=== PATIENT | female | born 1995 | race Caucasian/White ===

== ENCOUNTER 2016-06-21 13:19 | Emergency (ER) | payer MEDICAID, OTHER ==
[2016-06-21 14:05] LABS: % BASOPHILS 0.8 % (0.0-2.0); % EOSINOPHILS 9.6 % (0.0-5.0); % LYMPHOCYTES 29.9 % (20.0-50.0); % MONOCYTES 5.8 % (2.0-10.0); % NEUTROPHILS 53.9 % (40.0-80.0); HEMATOCRIT 31.7 % (35.0-45.0); HEMOGLOBIN 10.2 gm/dL (11.7-15.5); MEAN CORPUSCULAR HEMOGLOBIN 21.8 pg (27.0-31.0); MEAN CORPUSCULAR HGB CONC 32.1 pg (28.0-36.0); MEAN PLATELET VOLUME 9.8 fl; NEUTROPHILE ABSOLUTE 2.5 Th/cmm (1.8-8.0); RED BLOOD COUNT 4.66 Mil/cmm (3.80-5.10); RED CELL DISTRIBUTION WIDTH 18.3 % (11.5-20.0); WHITE BLOOD COUNT 4.6 Th/cmm (4.8-10.8)
[2016-06-21 14:11] LABS: INR 0.98 (0.5-1.4); PROTHROMBIN TIME (TEST) 10.2 SECONDS (9.5-11.5)
[2016-06-21 14:14] LABS: PLATELET COUNT 338 Th/cmm (150-400)
[2016-06-21 14:16] LABS: ALB/GLOB RATIO 1.4 (1.0-1.8); ALKALINE PHOSPHATASE 94 U/L (34-104); ANION GAP 6.9 (7.0-16.0); BILIRUBIN,TOTAL 0.3 mg/dL (0.3-1.0); BUN - UREA NITROGEN 8 mg/dL (7-25); BUN/CREATININE RATIO 13.3; CALCIUM SERUM 9.3 mg/dL (8.6-10.3); CARBON DIOXIDE 25.7 mEq/L (21.0-31.0); CHLORIDE 108 mEq/L (98-107); CREATININE - SERUM 0.6 mg/dL (0.6-1.2); GLUCOSE 113 mg/dL (70-105); POTASSIUM SERUM 3.6 mEq/L (3.5-5.1); SGOT 12 U/L (13-39); SGPT/ALT 13 U/L (7-52); SODIUM SERUM 137 mEq/L (136-145)
[2016-06-21 14:17] LABS: CHOLESTEROL 228 mg/dL (<200); TRIGLYCERIDES 83 mg/dL (<150)
[2016-06-21 14:24] LABS: URINE BILIRUBIN NEGATIVE (NEGATIVE); URINE BLOOD MODERATE (NEGATIVE); URINE COLOR YELLOW; URINE GLUCOSE (UA) NEGATIVE (NEGATIVE); URINE KETONE NEGATIVE (NEGATIVE); URINE PH 6.5; URINE PROTEIN NEGATIVE (NEGATIVE); URINE UROBILINOGEN 0.2 E.U./dL (0.2 - 1.0)
[2016-06-21 14:25] LABS: URINE BACTERIA NONE SEEN /hpf (NONE SEEN); URINE EPITHELIAL CELLS MANY /lpf (FEW); URINE WBC NONE SEEN /hpf (0-5)
[2016-06-21] MEDS ORDERED: Sodium Chloride 0.9% 1,000 ML IV ONE (14:59)
--- NOTE | 2016-06-21 15:12 | ED Physician Chart ---
Chief Complaint/HPI - Patient Information Date Seen:: 06/21/16 Time Seen:: 13:48 Chief Complaint:: SEIZURES History of Present Illness:: THIS IS A 20 YO FEMALE WHO IS CONCERNED ABOUT HAVING SEIZURES MORE FREQUENT SINCE SHE GAVE TO A BABY ABOUT ONE MONTH AGO. SHE HAD SEIZURES BEFORE HER DELIVERY BUT NOT FREQUENT. SHE ALSO STATES THAT SHE HAS BEEN HAVING MORE HEADACHES. SHE DENIES NAUSEA AND VOMITING. SHE DENIES CHEST PAIN AND ABDOMINAL PAIN. Allergies:: Allergies Allergy/AdvReac Type Severity Reaction Status Date / Time ethosuximide [From Zarontin] Allergy Verified 01/29/16 21:41 vancomycin Allergy Verified 01/29/16 21:41 Vitals:: Vital Signs - 8 hr 06/21/16 13:36 Temp 97.4 F HR 85 RR 18 BP 124/83 O2 Sat % 99 Historian:: Patient Review:: Nurse's Note Reviewed Review of Systems - Review of Systems General/Constitutional: No fever, No chills, No weight loss, No weakness, No diaphoresis, No edema, No loss of appetite Skin: No skin lesions, No rash, No bruising Head: No headache, No light-headedness Eyes: No loss of vision, No pain, No diplopia ENT: No earache, No nasal drainage, No sore throat, No tinnitus Neck: No neck pain, No swelling, No thyromegaly, No stiffness, No mass noted Cardio Vascular: No chest pain, No palpitations, No PND, No orthopnea, No edema Pulmonary: No SOB, No cough, No sputum, No wheezing GI: No nausea, No vomiting, No diarrhea, No pain, No melena, No hematochezia, No constipation, No hematemesis G/U: No dysuria, No frequency, No hematuria Musculoskeletal: No bone or joint pain, No back pain, No muscle pain Endocrine: No polyuria, No polydipsia Psychiatric: No prior psych history, No depression, No anxiety, No suicidal ideation Hematopoietic: No bruising, No lymphadenopathy Allergic/Immuno: No urticaria, No angioedema Neurological: No syncope, No focal symptoms, No weakness, No paresthesia, Headache, Seizure, No dizziness, No confusion, No vertigo Past Medical History - Past Medical History Obtainable: Yes Past Medical History: Seizures Family History: None Social History: Non Smoker, No Alcohol, No Drug Use Surgical History: None Psychiatricy History: None Medication: Reviewed Family Medical History - Family Member Mother History Unknown: Yes Physical Exam - Physical Examination General/Constitutional: Awake, Well-developed, well-nourished, Alert, No distress, GCS 15, Non-toxic appearing, Ambulatory Head: Atraumatic Eyes: Lids, conjuctiva normal, PERRL, EOMI Skin: Nl inspection, No rash, No skin lesions, No ecchymosis, Well hydrated, No lymphadenopathy ENMT: External ears, nose nl, Nasal exam nl, Lips, teeth, gums nl Neck: Nontender, Full ROM w/o pain, No JVD, No nuchal rigidity, No bruit, No mass, No stridor Respiratory: Nl effort/Exclusion, Clear to Auscultation, No Wheeze/Rhonchi/Rales Cardio Vascular: RRR, No murmur, gallop, rubs, NL S1 S2 GI: No tenderness/rebounding/guarding, No organomegaly, No hernia, Normal BS's, Nondistended, No mass/bruits, No McBurney tenderness : No CVA tenderness Extremities: No tenderness or effusion, Full ROM, normal strength in all extremities, No edema, Normal digits & nails Neuro/Psych: Alert/oriented, DTR's symmetric, Normal sensory exam, Normal motor strength, Judgement/insight normal, Mood normal, Normal gait, No focal deficits Misc: normal gait, Normal back, No paraspinal tenderness Labs/Radiology/EKG Results - Lab Results Results: Laboratory Tests 06/21/16 06/21/16 06/21/16 13:50 13:50 13:50 WBC 4.6 L RBC 4.66 Hgb 10.2 L Hct 31.7 L MCH 21.8 L MCHC Differential 32.1 RDW 18.3 Plt Count 338 D MPV 9.8 Neutrophils % 53.9 Lymphocytes % 29.9 Monocytes % 5.8 Eosinophils % 9.6 H Basophils % 0.8 PT 10.2 INR 0.98 PTT (Actin FS) 24.9 L Sodium Potassium Chloride Carbon Dioxide Anion Gap BUN Creatinine Est GFR ( Amer) Est GFR (Non-Af Amer) BUN/Creatinine Ratio Glucose Calcium Total Bilirubin AST ALT Alkaline Phosphatase Troponin I Total Protein Albumin Globulin Albumin/Globulin Ratio Triglycerides 83 Cholesterol 228 H LDL Cholesterol Direct 161 HDL Cholesterol 48 TSH Urine Source Urine Color Urine Clarity Urine pH Ur Specific [place] Urine Protein Urine Glucose (UA) Urine Ketones Urine Blood Urine Nitrate Urine Bilirubin Urine Urobilinogen Ur Leukocyte Esterase Urine RBC Urine WBC Ur Epithelial Cells Urine Bacteria Urine Test 06/21/16 06/21/16 06/21/16 13:50 13:50 13:50 WBC RBC Hgb Hct MCH MCHC Differential RDW Plt Count MPV Neutrophils % Lymphocytes % Monocytes % Eosinophils % Basophils % PT INR PTT (Actin FS) Sodium 137 Potassium 3.6 Chloride 108 H Carbon Dioxide 25.7 Anion Gap 6.9 L BUN 8 Creatinine 0.6 Est GFR ( Amer) > 60.0 Est GFR (Non-Af Amer) > 60.0 BUN/Creatinine Ratio 13.3 Glucose 113 H Calcium 9.3 Total Bilirubin 0.3 AST 12 L ALT 13 Alkaline Phosphatase 94 Troponin I < 0.01 L Total Protein 6.4 Albumin 3.7 Globulin 2.7 Albumin/Globulin Ratio 1.4 Triglycerides Cholesterol LDL Cholesterol Direct HDL Cholesterol TSH 0.91 Urine Source Urine Color Urine Clarity Urine pH Ur Specific [place] Urine Protein Urine Glucose (UA) Urine Ketones Urine Blood Urine Nitrate Urine Bilirubin Urine Urobilinogen Ur Leukocyte Esterase Urine RBC Urine WBC Ur Epithelial Cells Urine Bacteria Urine Test 06/21/16 06/21/16 14:02 14:02 WBC RBC Hgb Hct MCH MCHC Differential RDW Plt Count MPV Neutrophils % Lymphocytes % Monocytes % Eosinophils % Basophils % PT INR PTT (Actin FS) Sodium Potassium Chloride Carbon Dioxide Anion Gap BUN Creatinine Est GFR ( Amer) Est GFR (Non-Af Amer) BUN/Creatinine Ratio Glucose Calcium Total Bilirubin AST ALT Alkaline Phosphatase Troponin I Total Protein Albumin Globulin Albumin/Globulin Ratio Triglycerides Cholesterol LDL Cholesterol Direct HDL Cholesterol TSH Urine Source CLEAN C Urine Color YELLOW Urine Clarity HAZY Urine pH 6.5 Ur Specific [place] 1.015 Urine Protein NEGATIVE Urine Glucose (UA) NEGATIVE Urine Ketones NEGATIVE Urine Blood MODERATE H Urine Nitrate NEGATIVE Urine Bilirubin NEGATIVE Urine Urobilinogen 0.2 Ur Leukocyte Esterase NEGATIVE Urine RBC 2-5 Urine WBC NONE SEEN Ur Epithelial Cells MANY Urine Bacteria NONE SEEN Urine Test NEGATIVE ED Septic Shock - . Is Septic Shock (SBP<90, OR Lactate>4 mmol\L) present?: No - <6hrs of presentation: Vital Signs: Vital Signs - 8 hr 05/05/17 13:36 Temp 97.4 F HR 85 RR 18 BP 124/83 O2 Sat % 99 Reassessment (Disposition) - Reassessment Reassessment Condition:: Unchanged - Diagnosis Diagnosis:: SEIZURE DISORDER - Aftercare/Follow up Instructions Aftercare/Follow-Up Instructions:: Counseled pt regarding lab results/diagnosis & need follow up, Refer to Discharge Instructions, Counseled pt & family regarding lab results/diagnosis & need follow up - Patient Disposition Discharge/Transfer:: Home Condition at Disposition:: Stable ED Discharge Plan - Patient Disposition Admit/Discharge/Transfer: PT DISCHARGED HOME Condition at Disposition: Unchanged
--- NOTE | 2016-06-21 15:25 | Diagnostic Imaging Report ---
Head CT without intravenous contrast Indication: Seizures Comparison: Previous head CT on 09/21/2014 Technique: Axial images were obtained from the vertex to the skull base without IV contrast. Coronal reconstructions were made. Total DLP: [id number], [id number] FINDINGS: Images of the brain obtained without contrast again demonstrate evidence of right occipital approach shunt catheter terminating along the right occipital extra-axial region as seen on the previous examination. There is no evidence of an acute hemorrhage. Areas of encephalomalacia of the right occipital region are noted. There is stable generalized decreased size of the ventricular system. No mass effect or midline shift. The ventricles and basal cisterns are patent. No evidence of a skull fracture or focal soft tissue swelling. The visualized paranasal sinuses are clear. IMPRESSION: Redemonstration of right occipital approach shunt catheter terminating along the right occipital extra-axial region. Focal encephalomalacia of the right occipital lobe is again noted. No evidence of acute hemorrhage Stable generalized decreased size of the ventricular system. Please correlate with clinical findings.
[2016-06-21 16:11] LABS: MEAN CELL VOLUME 67.9 fl (81-100)
== END 2016-06-21 16:55 | disposition home or self-care (01) ==
LOC: ER 13:19
DX: G40.909 Epilepsy, unspecified, not intractable, without status epilepticus (principal); Z88.1 Allergy status to other antibiotic agents
CPT/HCPCS: 36415-UA; 70450-TC; 80053-TC; 80061-TC; 80299-90; 81001-TC; 81025-TC; 84443-TC; 84484-TC; 85025-TC; 85610-TC; 85730-TC; 86592-TC